=== PATIENT | female | born 1965 | race Caucasian/White ===

== ENCOUNTER 2018-04-07 06:24 | Inpatient (IN) ==
[2018-04-07] MEDS ORDERED: Vancomycin Inj 1,000 MG in Sodium Chlor 0.9% Inj 250 ML IV.SIG PRN (06:47)
[2018-04-07] MEDS ORDERED: Chlorhexidine Gluconate 2% 1 Pack (2 Cloths) TOPICAL ONE (06:52)
[2018-04-07] MEDS ORDERED: Metoprolol Tartrate 25 MG Tablet PO ONE (06:52)
[2018-04-07] MEDS ORDERED: Sodium Chlor 0.9% Inj 500 ML IV.SIG SCH (07:00)
[2018-04-07] MEDS ORDERED: ceFAZolin 2 GM Premix Inj 2 GM/50 ML PIGGYBACK IV.SIG ONE (07:02)
[2018-04-07] MEDS ORDERED: Bupivacaine/Epinephrine PF Inj 0.5% 30 ML Vial ONE (07:02)
[2018-04-07] MEDS ORDERED: Thrombin Topical Soln 5,000 UNIT Vial TOPICAL ONE (07:02)
[2018-04-07] MEDS ORDERED: Gelatin Size 100 Topical Foam ONE (07:03)
[2018-04-07] MEDS ORDERED: HYDROmorphone PF Inj 2 MG/ML Vial ONE (07:06)
[2018-04-07] MEDS ORDERED: Propofol Inj 500 MG/50 ML Vial ONE (07:06)
[2018-04-07] MEDS ORDERED: fentaNYL Citrate Inj 250 MCG/5 ML Ampul ONE (07:06)
[2018-04-07] MEDS ORDERED: Dexmedetomidine Inj 200 MCG/2 ML Vial ONE (07:07)
[2018-04-07] MEDS ORDERED: Phenylephrine/NS 1000 MCG/10ML Syringe IV.PUSH ONE (08:30)
[2018-04-07] MEDS ORDERED: Artificial Tears Opth Oint 3.5 GM Tube ONE (08:35)
[2018-04-07] MEDS ORDERED: Bisacodyl 10 MG Supp RECTAL PRN (10:03)
[2018-04-07] MEDS ORDERED: Ibuprofen 200 MG Tablet PO PRN (10:05)
[2018-04-07] MEDS ORDERED: Naloxone Inj 0.4 MG/ML Vial IV.PUSH PRN (10:05)
[2018-04-07] MEDS ORDERED: methylPREDNISolone acetate 40 MG/ML VIAL ONE (12:00)
[2018-04-07] MEDS ORDERED: fentaNYL Citrate Inj 100 MCG/2 ML Ampul ONE (13:48)
[2018-04-07] MEDS ORDERED: *morphine SULFATE 4 MG/ML PERIprocedure ONLY ONE (14:03)
--- NOTE | 2018-04-07 14:27 | P.OP ---
Preoperative Diagnosis: L4-5 spondylolisthesis, L1-L2 disk herniation Postoperative Diagnosis: L4-5 spondylolisthesis, L1-L2 disk herniation Date of procedure: 04/07/18 Procedure: 1- L4-L5 right laminectomy, interbody arthrodesis using PEEK cage and autologous bone graft, L4-L5 instrumental fixation using transpedicular screws and rods, L4-L5 lithopress operator lateral fusion using autologous bone graft and demineralized bone matrix. Microsurgical dissection 2- L1-L2 left hemilaminectomy and microdiscectomy Anesthesia: KELBY Surgeon: Herbert Albright MD Thermite Welder: Neha De La Cruz Pathology: none sent Operation and Findings: INDICATIONS FOR THE SURGICAL PROCEDURE Ms Murphy is a 52 year-old female who presented with intractable mechanical back pain and yasmin evidence of right L5 lower extremity radiculopathy and left L2 radiculopathy. She failed maximum nonsurgical management including multiple modalities of conservative treatment as well as pain management interventions by an interventional pain specialist. A surgical decompression and arthrodesis were indicated as a last resort. The essr-[id number] details of the procedure, indications, alternatives, risks and potential complications were fully discussed with the patient. The patient fully understood. All the questions were answered. No guarantees were given. The patient voiced requesting the procedure and provided informed consents. The patient was offered the alternative of delaying the procedure and continuing with nonsurgical management. DETAILS OF THE SURGICAL PROCEDURE Prior to the procedure, the surgical incision was marked in the preoperative surgical holding room, and the procedure, risks, and potential complications revisited with the patient. Placement of electrodes for intraoperative neurophysiological monitoring was completed. The patient was taken to the operative room, and following induction of general anesthesia, endotracheal intubation was performed. A Sherman catheter, bilateral FAHAD hose and sequential compression devices were placed and kept throughout the procedure. The patient was positioned prone, over a Sandip table over a bolsters. All pressure in the preoperative surgical holding room points were carefully padded with eggcrate and gel mattress. The eyes were tapped shut after ointment was applied by the anesthesiologist to prevent corneal abrasion. A Josselyn hugger was placed over the expossed lower body to maintain control of the core body temperature. The electrophysiological team placed the needles and electrodes in their proper location and baseline SSEP's and EMG potentials were registered. The entrance to each pedicles was marked using a C arm. The lumbar region was prepped and draped in the usual sterile fashion. The surgical procedure was performed in several steps as follow: SURGICAL APPROACH Once the patient was positioned, a localizing cross-table lateral x-ray was performed with a C-arm. Two paramedian small incisions were outlined on the skin approximately 3cm from the midline. The skin incisions were made with a # 10 blade. Small bleeders were controlled with the cautery. The dissection was then carried out into deper planes and through the thoracolumbar fascia with a Bovie. The intermuscular septum was identified and the myscles were blunted dissected along the septum. The facets and transverse process of L4 and L5 were exposed and the proper anatomical landmarks were identidied. A microsurgical self-retaining retractor was placed on the incision, and a localizing lateralizing cross-table x-ray was performed with an instrument underneath a lamina of the lumbar spine. INSTRUMENTAL FIXATION at L4-5 At this point in the procedure, placement of bilateral transpedicular screws was necessary for stabilization of the spine. Initially, the entry point for the screw was selected anatomically at the junction of the facet, with the transverse process, and the pars interarticularis at L4 and L5. This was started with a Giamshetti needle followed by the use of a brandt wire. A tap was used to create the threads for the screws. Finally bilateral transpedicular screws were carefully placed bilaterally at L4, and L5 under fluoroscopic visualization. An appropriate purchase was achieved with all screws. The position of each screw was assessed anatomically with an AP, lateral , oblique Xrays. An intraoperative scan view of the spine was then performed using the iso-centric c-arm. Each screw was then assessed electrophysiologically stimulating each screw with a nerve stimulator. SURGICAL DECOMPRESSION at L4-5 There was significant mass effect with compression of the neural structures. In order to relieve neural compression, it was necessary to perform a decompressive laminectomy, with decompression of the spinal canal and bilateral lateral recesses. Note that the scope of such decompression was significantly more extensive than the minimal exposure necessary to perform an interbody fusion, as there was extreme facet arthropathy with near complete collapse of the disk spaces and severe stenosis cause by the hyperthrophic joint facets. At this point of the procedure the operative microscope was draped in the usual sterile fashion and brought to the field. The rest of the surgical procedure was performed using microdissection technique with the exception of the closure. Under the operating microscope, a right decompressive laminectomy was carried out at L4-L5 as follow: The laminae, base of the spinous processes and facets were carefully drilled exposing the ligamentum flavum. The facets were abnormal with severe spondylolisthesis and gross mechanical instability. A large disk protusion was compressing the neural structures and exiting nerve roots. A near complete facetectomy was necessary resulting in further mechanical instability. The ligamentum flavum appeared hypertrophic, resulting on mass effect on the dorsal surface of the neural structures. The superior free border of the ligamentum flavum was elevated with a ligament dissector and the ligamentum flavum was removed with a 3 and 4 mm Kerrison forceps. The ligament was very adherent to the dural sac and during the dissection, and extreme care was taken during the dissection. The exiting nerve roots were identified, and a wide foraminotomy was performed with a Kerrison in their trajectory towards the neural foramen. Epidural veins located laterally to the dural sac were coagulated with the bipolar cautery, and then incised using microscissors. Gentle medial retraction of the dural sac allowed me to expose the disc space for the discectomy. Upon completion of the discectomy, an excellent decompression of the neural structures was achieved. Increased motion was noted thorough the procedure, consistent with mechanical instability. INTERBODY ARTHRODHESIS at L4-5 In order to correct the narrowing of the disk space and maintain distraction of the space, and to achieve a solid interbody fusion, it was necessary the insertion of an interbody device into the disk space. Otherwise, the disk space would collapse, compromising the result of the surgical procedure. At this point of the procedure, the annulus fibrosus of the disk was carefully coagulated with a bipolar cautery and incised using an 11 bladed knife. Then, a microdiscectomy was carried out in a standard fashion using a combination of straight and up-biting pituitary forceps. A reverse angle curette was applied underneath the posterior longitudinal ligament, and used to push the disk fragments into the disk space, so they can be safely removed with a pituitary forceps. Once the discectomy was completed, it was necessary to decorticate the endplates, in order to eliminate the cartilaginous endplate and to expose healthy bone appropriate to perform the interbody fusion. The endplates at L4- L5 were then thoroughly decorticated using increasing size bone irving and ring curets, eliminating the cartilaginous fragments from both, the superior and inferior endplates. A disk space distractor was applied to the pedicle screws and gentle distraction was applied. This maneuver was assisted by the use of a disk distractor. Increased motility was noted at the disk, which was consistent with instability due to facet arthropathy. Once a thorough preparation of the disk space was achieved, the disk space was irrigated with antibiotic solution, and the interbody fusion was performed by carefully impacting an expandable PPEK cage filled with autologous bone graft. The cage was cartefully expanded. A solid position of the cage with good purchase was achieved. The position of the cage was assessed anatomically with a probe and radiologically with the C-arm. POSTEROLATERAL FUSION at L4-5 The posterolateral fusion is a critical component to the procedure, to prevent future fatigue and failure of the instrumental fixation. Initially, the transverse processes of the vertebral bodies, lateral surface of the facets and the lateral gutters of the spine were carefully cleaned, eliminating all soft tissue and muscle attachments. The area was then irrigated with a large amount of antibiotic solution. Subsequently, the transverse processes, lateral surface of the facets, and lateral gutters of the spine were thoroughly decorticated using the TPS drill with a 5mm cutting ailyn, exposing cancellous bone, in preparation for the posterolateral fusion. The incision was again irrigated with antibiotic solution. Then, the posterolateral fusion was then performed by carefully packing the lateral gutters of the spine at L4-L5 with autologous bone combined with demineralized bone matrix. SURGICAL DECOMPRESSION AT L1-L2 There was a disk herniation at L1-L2 causing significant mass effect with compression of the neural structures. Under the operating microscope, a decompressive laminectomy was carried out at L1-L2 as follow: The laminae, base of the spinous processes and facets were carefully drilled exposing the ligamentum flavum. The superior free border of the ligamentum flavum was elevated with a ligament dissector and the ligamentum flavum was removed with a 3 and 4 mm Kerrison forceps. The exiting nerve roots were identified, and a wide foraminotomy was performed with a Kerrison in their trajectory towards the neural foramen. Epidural veins located laterally to the dural sac were coagulated with the bipolar cautery, and then incised using microscissors. Gentle medial retraction of the dural sac allowed me to expose the disc space for the discectomy. there was a disk herniation with an extrusion. Upon completion of the discectomy, an excellent decompression was achieved. COMPLETION OF THE INSTRUMENTATION AND CLOSURE The rods were brought to the field, applied to all the screws, and the screw caps were sequentially applied. Compression was performed between the pedicle screws, and final tightening of the screws was completed using a torque wrench. The incision was again thoroughly irrigated with several liters of antibiotic solution, and hemostasis secured with the bipolar cautery. A Valsalva Maneuver performed by the anesthesiologist failed to show any evidence of cerebrospinal fluid leak or bleeding. A 10 mm Sandip-Alejo drain was left in the epidural space at L4-5 and externalized through a separate stab incision. Each incision was then closed in planes. 0 Vicryl was used in an interrupted fashion to close the thoracolumbar fascia and the superficial fascia. The subcutaneous tissue was then approximated using 3-0 Vicryl in an interrupted fashion. Special care was taken to avoid space. The skin was then closed with 4-0 Vicryl in a running, subcuticular fashion. Dermabond was applied to the skin. Each plane of closure was irrigated with antibiotic solution. At the end of the procedure the sponge, needle and instrument counts were all correct. Estimated blood loss was 250cc. No blood transfusion was given. The entire procedure was performed using continuous electrophysiological monitoring of the somatosensorial evoked potentials and EMG. The patient received prophylactic antibiotics. The patient was then extubated and transferred to the recovery room in stable condition.
--- NOTE | 2018-04-07 15:14 | XR ---
EXAM DATE: 04/07/2018 12:00 AM EDT AGE/SEX: 52 years / Female INDICATIONS: Fusion L4,L5 with screw and phyllis. CLINICAL DATA: This is the patient's initial encounter. Patient reports that signs and symptoms have been present for 1 day and indicates a pain score of Nonresponsive. MEDICAL/SURGICAL HISTORY: None. None. COMPARISON: POI, XR SPINE LUMBAR AP AND LAT W/ FLEX AND EXT, 12/22/2017. . FINDINGS: Intraoperative examination demonstrates Transpedicular screws traverse the bodies of L4-5 with pos terior stabilization hardware in place in addition to anterior fusion at these levels. CONCLUSION: Intact immediate postsurgical changes. Electronically signed by: Abbey Hilario MD 04/07/2018 3:12 PM EDT
[2018-04-07] MEDS ORDERED: Morphine Inj 4 MG/ML Vial ONE (16:09)
[2018-04-07] MEDS: ceFAZolin 2 GM Premix Inj 2 GM/50 ML PIGGYBACK IV.SIG SCH (17:34)
[2018-04-07] MEDS: Sod Chloride 0.9% Inj 1,000 ML IV.SIG SCH (18:17)
[2018-04-07] MEDS: Gabapentin 300 MG Capsule PO SCH ×2 (18:18→21:29)
[2018-04-07] MEDS: Chlorhexidine Gluconate 2% 1 Pack (2 Cloths) TOPICAL SCH (18:18)
[2018-04-07] MEDS: Sod Chloride 0.9% Inj 1,000 ML IV.CONT SCH ×2 (18:18→21:29)
[2018-04-07] MEDS: HYDROmorphone PCA Inj 6 MG/30 ML PCA.VIAL PCA PRN (20:19)
[2018-04-07] MEDS: Senna/Docusate Sodium 8.6/50 MG Tablet PO SCH (21:28)
[2018-04-08] MEDS: ceFAZolin 2 GM Premix Inj 2 GM/50 ML PIGGYBACK IV.SIG SCH ×2 (01:11→08:38)
[2018-04-08] MEDS: HYDROmorphone PCA Inj 6 MG/30 ML PCA.VIAL PCA PRN ×3 (02:56→19:35)
[2018-04-08] MEDS: Sod Chloride 0.9% Inj 1,000 ML IV.CONT SCH ×2 (05:24→16:15)
[2018-04-08] MEDS: Sod Chloride 0.9% Inj 1,000 ML IV.SIG SCH (08:37)
[2018-04-08] MEDS: Gabapentin 300 MG Capsule PO SCH ×2 (08:38→20:19)
[2018-04-08] MEDS: Senna/Docusate Sodium 8.6/50 MG Tablet PO SCH ×2 (08:39→20:19)
[2018-04-08] MEDS ORDERED: BLACK COHOSH PO SCH (09:00)
[2018-04-08] MEDS: Chlorhexidine Gluconate 2% 1 Pack (2 Cloths) TOPICAL SCH (09:00)
--- NOTE | 2018-04-08 10:18 | P.PNNS ---
Subjective Interval history: moderate incisional pain worse with movement. controlled on SACK DEPARTMENT SUPERVISOR. mild nausea with movement. Physical Exam Vital signs: Vital Signs 04/07/18 13:39 04/07/18 13:45 04/07/18 14:00 Temperature 97.6 F Pulse Rate 91 H 82 100 H Respiratory Rate 15 15 15 Blood Pressure 104/59 L 101/60 100/55 L Pulse Oximetry 96 96 98 04/07/18 14:15 04/07/18 14:30 04/07/18 15:00 Temperature Pulse Rate 87 100 H 68 Respiratory Rate 17 17 16 Blood Pressure 98/51 L 95/46 L 106/65 Pulse Oximetry 98 98 98 04/07/18 15:30 04/07/18 16:00 04/07/18 17:00 Temperature Pulse Rate 68 86 90 Respiratory Rate 15 16 15 Blood Pressure 109/62 110/56 L 102/55 L Pulse Oximetry 97 97 97 04/07/18 18:00 04/07/18 20:25 04/07/18 21:18 Temperature 98.0 F 97.1 F L Pulse Rate 86 67 Respiratory Rate 15 17 Blood Pressure 110/57 L 135/74 Pulse Oximetry 97 100 99 04/07/18 21:30 04/07/18 23:37 04/08/18 01:13 Temperature 97.3 F L Pulse Rate 78 Respiratory Rate 8 L 17 16 Blood Pressure 98/51 L Pulse Oximetry 98 04/08/18 03:00 04/08/18 04:02 04/08/18 08:00 Temperature 98.3 F 97.6 F Pulse Rate 89 85 Respiratory Rate 17 18 18 Blood Pressure 159/74 H 103/58 L Pulse Oximetry 98 100 Intake & Output 04/07/18 04/08/18 04/08/18 18:59 06:59 18:59 Intake Total 3100 / 3100 1410 / 1410 Output Total 1550 / 1550 1600 / 1600 Balance 1550 / 1550 -190 / -190 Weight 60.6 kg 60.6 kg Intake: IV 1100 / 1100 1050 / 1050 NS Inj 1,000 ML @ 100 mls/hr IV 1000 / 1000 .CONT .Q10H [facility] Rx#:[id number] LR 1000 mL Inj 1,000 ML @ 30 1000 / 1000 mls/hr IV.SIG .Q24H [facility] Rx#: [id number] Ancef 2 GM Premix Inj 2 gm In 100 / 100 50 / 50 50 ml @ 100 mls/hr IV.SIG Q8H [facility] Rx#:[id number] Oral 360 / 360 Anesthesia Amount 1999 Output: Estimated Blood Loss 150 / 150 Urine Amount (Catheter) 1400 / 1400 1600 / 1600 Indwelling Urethral Catheter 1400 / 1400 1600 / 1600 Other: Date of Last Bowel Movement 04/07/18 # Bowel Movements 0 Weight On Admission 60.6 kg Narrative: awake, alert NAD ELY drain with moderate drainage move LE 5-/5 limited due to postoperative pain - Urinary Catheter Management Indwelling Urethral Catheter Cath placed during this visit: yes Reason for continuing: Acute urinary retention Insertion date: 04/07/18 Insertion time: 09:00 Assessment and Plan - Plan 52 y/o F s/p L4-L5 right laminectomy, interbody arthrodesis using PEEK cage and autologous bone graft, L4-L5 instrumental fixation using transpedicular screws and rods, L4-L5 district resource officer lateral fusion using autologous bone graft and demineralized bone matrix. Microsurgical dissection. L1-L2 left hemilaminectomy and microdiscectomy for L4-5 spondylolisthesis, L1-L2 disk herniation (04/07/18) cont SACK DEPARTMENT SUPERVISOR for pain control LSO when out of bed cont ELY draining, monitor output
--- NOTE | 2018-04-08 16:24 | P.DCO ---
- Physical Therapy Order: Improve ambulation - Home Health Nursing Order: Medical education, Signs/symptoms of disease process, Wound care and dressing changes, Nursing assessment with vital signs - Case Management Consult No - Certification I have seen patient Yasmine Jeffries on 04/08/18. My clinical findings support the need for the requested home health care services because: Deconditioned with increased weakness, High risk of falls I certify that my clinical findings support that this patient is homebound because: Post-op weakness, Unsteady gait/balance
--- NOTE | 2018-04-09 01:20 | ECG ---
Date Performed: 04/07/2018 Time Performed: 07:11:13 PTAGE: 52 years EKG: Sinus rhythm NORMAL ECG NO PREVIOUS TRACING DOCTOR: Guillaume Garcia Interpretating Date/Time 04/09/2018 01:19:34
[2018-04-09] MEDS: HYDROmorphone PCA Inj 6 MG/30 ML PCA.VIAL PCA PRN ×2 (04:23→16:50)
[2018-04-09] MEDS: Sod Chloride 0.9% Inj 1,000 ML IV.CONT SCH ×3 (04:23→22:56)
[2018-04-09] MEDS: Sod Chloride 0.9% Inj 1,000 ML IV.SIG SCH (06:54)
[2018-04-09] MEDS: Gabapentin 300 MG Capsule PO SCH ×2 (08:12→20:59)
[2018-04-09] MEDS: Senna/Docusate Sodium 8.6/50 MG Tablet PO SCH ×2 (08:12→20:59)
[2018-04-09] MEDS: Chlorhexidine Gluconate 2% 1 Pack (2 Cloths) TOPICAL SCH (09:00)
--- NOTE | 2018-04-09 10:41 | XR ---
EXAM DATE: 04/07/2018 12:00 AM EDT AGE/SEX: 52 years / Female INDICATIONS: Level localization for laminectomy L1,L2. CLINICAL DATA: This is the patient's initial encounter. Patient reports that signs and symptoms have been present for 1 day and indicates a pain score of Nonresponsive. MEDICAL/SURGICAL HISTORY: None. None. COMPARISON: POI, XR SPINE LUMBAR AP AND LAT W/ FLEX AND EXT, 12/22/2017. . FINDINGS: A coned-down lateral view of the lumbar spine. Lumbosacral region is not imaged to allow for localiza tion. Intradiscal hardware and transpedicular rods are noted in the lower lumbar spine. There is a ra diopaque marker 2 levels above the highest lower lumbar hardware. Vertebral body heights are intact. CONCLUSION: 1. Lumbar localization, as above. Electronically signed by: Michael Toledo MD 04/09/2018 10:40 AM EDT
--- NOTE | 2018-04-09 10:59 | P.PNNS ---
Subjective Interval history: stable incisional pain controlled on UX UI DESIGNER, c/o however of WHITE's today. ELY drain also with increased serous drainage. Physical Exam Vital signs: Vital Signs 04/08/18 12:00 04/08/18 15:50 04/08/18 19:22 Temperature 97.7 F 97.8 F 98.0 F Pulse Rate 85 84 81 Respiratory Rate 18 18 17 Blood Pressure 127/59 L 108/54 L 123/64 Pulse Oximetry 100 99 97 04/09/18 00:14 04/09/18 05:38 04/09/18 08:00 Temperature 98.1 F 97.7 F Pulse Rate 90 89 Respiratory Rate 17 16 20 Blood Pressure 137/67 121/65 Pulse Oximetry 97 98 Intake & Output 04/08/18 04/09/18 04/09/18 18:59 06:59 18:59 Intake Total 2820 / 2820 1360 / 1360 Output Total 1200 / 1200 1710 / 1710 Balance 1620 / 1620 -350 / -350 Weight 60.6 kg Intake: IV 1000 / 1000 1000 / 1000 NS Inj 1,000 ML @ 100 mls/hr IV 1000 / 1000 1000 / 1000 .CONT .Q10H [facility] Rx#:[id number] Oral 1820 / 1820 360 / 360 Output: Urine 1150 / 1150 Urine Amount (Catheter) 1650 / 1650 Indwelling Urethral Catheter 1650 / 1650 Wound Drainage 50 / 50 60 / 60 # 1 Medial Back 50 / 50 60 / 60 Other: Date of Last Bowel Movement 04/07/18 04/07/18 04/07/18 # Bowel Movements 0 0 - Urinary Catheter Management Indwelling Urethral Catheter Cath placed during this visit: yes, but has since been removed by the nurse Reason for continuing: Decision to DC catheter Insertion date: 04/07/18 Insertion time: 09:00 Removal date: 04/09/18 Removal time: 10:00 Assessment and Plan - Plan 52 y/o F s/p L4-L5 right laminectomy, interbody arthrodesis using PEEK cage and autologous bone graft, L4-L5 instrumental fixation using transpedicular screws and rods, L4-L5 manager simulation lateral fusion using autologous bone graft and demineralized bone matrix. Microsurgical dissection. L1-L2 left hemilaminectomy and microdiscectomy for L4-5 spondylolisthesis, L1-L2 disk herniation (04/07/18) ?CSF leak Plan: cont UX UI DESIGNER for pain control dc ELY drain and keep bed rest today, HOB no greater than 30 degrees
[2018-04-10] MEDS: Sod Chloride 0.9% Inj 1,000 ML IV.SIG SCH (08:13)
[2018-04-10] MEDS: Senna/Docusate Sodium 8.6/50 MG Tablet PO SCH ×2 (08:26→20:30)
[2018-04-10] MEDS: Gabapentin 300 MG Capsule PO SCH ×2 (08:27→20:30)
[2018-04-10] MEDS: Sod Chloride 0.9% Inj 1,000 ML IV.CONT SCH ×2 (09:30→17:58)
--- NOTE | 2018-04-10 10:44 | P.PNNS ---
Subjective Interval history: still moderately to severely painful at times surgical area, has not been using her FINAL CANOE INSPECTOR and may have missed some dosage of pain medications. prior radicular pain better, still c/o left hip pain and numbness. constipated. Physical Exam Vital signs: Vital Signs 04/09/18 12:00 04/09/18 16:00 04/09/18 20:30 Temperature 97.7 F 97.8 F 98.8 F Pulse Rate 92 H 102 H 95 H Respiratory Rate 20 19 16 Blood Pressure 109/55 L 123/61 115/57 L Pulse Oximetry 95 98 95 04/10/18 00:20 04/10/18 04:50 04/10/18 08:00 Temperature 98.4 F 97.4 F L 97.9 F Pulse Rate 87 84 82 Respiratory Rate 16 16 16 Blood Pressure 110/57 L 129/70 113/70 Pulse Oximetry 95 94 L 96 Intake & Output 04/09/18 04/10/18 04/10/18 18:59 06:59 18:59 Intake Total 1720 / 1720 1920 / 1920 Output Total 700 / 700 Balance 1020 / 1020 1920 / 1920 Weight 60.5 kg Intake: IV 1000 / 1000 1000 / 1000 NS Inj 1,000 ML @ 100 mls/hr IV 1000 / 1000 1000 / 1000 .CONT .Q10H [facility] Rx#:[id number] Oral 720 / 720 920 / 920 Output: Urine 700 / 700 Other: # Voids 3 2 Date of Last Bowel Movement 04/07/18 04/07/18 04/07/18 # Bowel Movements 0 Narrative: Awake, alert painful with movement wound inspected, gauze dressing with blood tinged serous drainage, no signs of active leaking or drainage from incisions and drain site. steri-strips placed over drain site and wound redressed with gauze and primapore 4/5 left iliopsoas with giveaway due to pain, 5/5 right iliopsoas, b/l quadriceps, hamstrings, TA, gastrocnemius - Urinary Catheter Management Indwelling Urethral Catheter Cath placed during this visit: yes, but has since been removed by the nurse Reason for continuing: Decision to DC catheter Insertion date: 04/07/18 Insertion time: 09:00 Removal date: 04/09/18 Removal time: 10:00 Assessment and Plan - Plan 52 y/o F s/p L4-L5 right laminectomy, interbody arthrodesis using PEEK cage and autologous bone graft, L4-L5 instrumental fixation using transpedicular screws and rods, L4-L5 mold press operator lateral fusion using autologous bone graft and demineralized bone matrix. Microsurgical dissection. L1-L2 left hemilaminectomy and microdiscectomy for L4-5 spondylolisthesis, L1-L2 disk herniation (04/07/18) ?CSF leak Plan: cont FINAL CANOE INSPECTOR for pain control today per Alex Aparicio prn cont bed rest today, HOB no greater than 30 degrees, ok for bathroom priveleges only cont bowel regimen cont wound monitoring, drain site SCDs and TEDs for dvt prophylaxis
[2018-04-10] MEDS: HYDROmorphone PCA Inj 6 MG/30 ML PCA.VIAL PCA PRN (20:30)
[2018-04-11] MEDS: Sod Chloride 0.9% Inj 1,000 ML IV.SIG SCH (08:58)
[2018-04-11] MEDS: Gabapentin 300 MG Capsule PO SCH ×2 (09:29→21:51)
[2018-04-11] MEDS: Senna/Docusate Sodium 8.6/50 MG Tablet PO SCH ×2 (09:29→21:51)
--- NOTE | 2018-04-11 13:18 | P.PNNS ---
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 Physical Exam Vital signs: Vital Signs 04/10/18 13:25 04/10/18 14:00 04/10/18 16:00 Temperature 98.3 F Pulse Rate 88 Respiratory Rate 15 12 18 Blood Pressure 100/59 L Pulse Oximetry 96 04/10/18 17:47 04/10/18 20:55 04/10/18 23:55 Temperature 97.9 F 97.6 F Pulse Rate 86 84 Respiratory Rate 14 15 16 Blood Pressure 116/56 L 117/62 Pulse Oximetry 94 L 96 04/11/18 02:00 04/11/18 04:25 04/11/18 06:00 Temperature 97.2 F L Pulse Rate 80 Respiratory Rate 18 15 18 Blood Pressure 116/58 L Pulse Oximetry 96 04/11/18 08:00 04/11/18 10:11 04/11/18 12:00 Temperature 98.0 F 98.2 F Pulse Rate 88 64 Respiratory Rate 18 17 16 Blood Pressure 118/73 111/53 L Pulse Oximetry 95 93 L Intake & Output 04/10/18 04/11/18 04/11/18 18:59 06:59 18:59 Intake Total 820 / 820 Output Total 1949 500 / 500 Balance -1949 / -1949 320 / 320 Weight 60.5 kg Intake: Oral 820 / 820 Output: Urine 1949 500 / 500 Other: # Voids 3 Date of Last Bowel Movement 04/10/18 Narrative: Awake, alert painful with movement wound inspected, gauze dressing with blood tinged serous drainage, no signs of active leaking or drainage from incisions and drain site. steri-strips placed over drain site and wound redressed with gauze and primapore 4/5 left iliopsoas with giveaway due to pain, 5/5 right iliopsoas, b/l quadriceps, hamstrings, TA, gastrocnemius - Urinary Catheter Management Indwelling Urethral Catheter Cath placed during this visit: yes, but has since been removed by the nurse Reason for continuing: Decision to DC catheter Insertion date: 04/07/18 Insertion time: 09:00 Removal date: 04/09/18 Removal time: 10:00 Assessment and Plan - Plan 52 y/o F s/p L4-L5 right laminectomy, interbody arthrodesis using PEEK cage and autologous bone graft, L4-L5 instrumental fixation using transpedicular screws and rods, L4-L5 outside production inspector lateral fusion using autologous bone graft and demineralized bone matrix. Microsurgical dissection. L1-L2 left hemilaminectomy and microdiscectomy for L4-5 spondylolisthesis, L1-L2 disk herniation (04/07/18) ?CSF leak Plan: cont TECHNICAL SALES SUPPORT MANAGER for pain control today per Alex Aparicio prn -- will d/c tomorrow d/c bedrest today afternoon given that wound is dry up activity as tolerated cont wound monitoring, looks dry today SCDs and TEDs for dvt prophylaxis
[2018-04-11] MEDS: HYDROmorphone PCA Inj 6 MG/30 ML PCA.VIAL PCA PRN (19:41)
[2018-04-12] MEDS: Senna/Docusate Sodium 8.6/50 MG Tablet PO SCH (09:05)
[2018-04-12] MEDS: Gabapentin 300 MG Capsule PO SCH (09:05)
[2018-04-12] MEDS: Sod Chloride 0.9% Inj 1,000 ML IV.SIG SCH (09:06)
--- NOTE | 2018-04-12 14:47 | P.PNNS ---
Subjective Interval history: Doing well since upright, GM VIDEO dc'd. would like to go home. Physical Exam Vital signs: Vital Signs 04/11/18 16:00 04/11/18 20:00 04/12/18 00:00 Temperature 98.0 F 97.8 F 97.8 F Pulse Rate 82 87 91 H Respiratory Rate 18 18 18 Blood Pressure 108/58 L 118/79 96/52 L Pulse Oximetry 97 95 96 04/12/18 02:00 04/12/18 04:00 04/12/18 06:00 Temperature 97.6 F Pulse Rate 90 Respiratory Rate 18 18 18 Blood Pressure 102/51 L Pulse Oximetry 95 04/12/18 08:00 04/12/18 12:00 Temperature 97.4 F L 97.7 F Pulse Rate 85 95 H Respiratory Rate 16 16 Blood Pressure 109/52 L 120/64 Pulse Oximetry 92 L 96 Intake & Output 04/11/18 04/12/18 04/12/18 18:59 06:59 18:59 Intake Total 240 / 240 Balance 240 / 240 Weight 60.5 kg Intake: Oral 240 / 240 Other: # Voids 3 2 Date of Last Bowel Movement 04/11/18 04/11/18 # Bowel Movements 1 1 Narrative: Awake, alert pain much improved incision c/d/i iliopsoas with giveaway due to pain, 5/5 right iliopsoas, b/l quadriceps, hamstrings, TA, gastrocnemius - Urinary Catheter Management Indwelling Urethral Catheter Cath placed during this visit: yes, but has since been removed by the nurse Reason for continuing: Decision to DC catheter Insertion date: 04/07/18 Insertion time: 09:00 Removal date: 04/09/18 Removal time: 10:00 Assessment and Plan - Plan 52 y/o F s/p L4-L5 right laminectomy, interbody arthrodesis using PEEK cage and autologous bone graft, L4-L5 instrumental fixation using transpedicular screws and rods, L4-L5 sales service rep lateral fusion using autologous bone graft and demineralized bone matrix. Microsurgical dissection. L1-L2 left hemilaminectomy and microdiscectomy for L4-5 spondylolisthesis, L1-L2 disk herniation (04/07/18) ?CSF leak Plan: d/c [facility] home health to see, d/c home with 3 days of pain medication, due to see Natalee on Friday. up activity as tolerated SCDs and TEDs for dvt prophylaxis
[2018-04-12 17:18] VITALS: BP 105/63; PULSE 89; RESP 18; TEMP 98; O2SAT 95
--- NOTE | 2018-04-13 17:00 | P.DS ---
Date of admission: 04/07/18 06:24 Primary care physician: Sasha Rojas Brief History from admission: Ms Murphy is a 52 year-old female who presented with intractable mechanical back pain and yasmin evidence of right L5 lower extremity radiculopathy and left L2 radiculopathy. She failed maximum nonsurgical management including multiple modalities of conservative treatment as well as pain management interventions by an interventional pain specialist. A surgical decompression and arthrodesis were indicated as a last resort. DS: Medications - Discharge Medications Prescriptions: hydrocodone-acetaminophen 2 tab PO Q4H PRN #36 tab PRN Reason: Pain Scale 6 To 10 DS: Summary Hospital Course: 1- L4-L5 right laminectomy, interbody arthrodesis using PEEK cage and autologous bone graft, L4-L5 instrumental fixation using transpedicular screws and rods, L4-L5 second operator lateral fusion using autologous bone graft and demineralized bone matrix. Microsurgical dissection 2- L1-L2 left hemilaminectomy and microdiscectomy for L4-5 spondylolisthesis, L1 -L2 disk herniation on 04/07/18. - Time Spent with Patient Total time spent providing and/or coordinating discharge services: - Quality: VTE Deep Vein Thrombosis/Pulmonary Embolism Present on Admission: No Exam Vital signs: Intake & Output 04/12/18 04/13/18 04/13/18 18:59 06:59 18:59 Other: # Voids 3 Date of Last Bowel Movement 04/11/18 Results - Impressions ITS Impressions Lumbar Spine X-Ray 04/07/18 00:00 CONCLUSION: 1. Lumbar localization, as above. Discharge Plan - Discharge Disposition Patient Disposition: 01 Discharge Home - Discharge Condition Condition: Good - Discharge Order Discharge Orders: Discharge Order (Routine); Ordered 04/12/18 Ordered By: Chirag James - Physicians Team Primary Care Provider: Sasha Rojas Attending Provider: Herbert Albright - Rxs /Orders / Referrals /Forms Prescriptions: New hydrocodone-acetaminophen 10-325 mg Tablet 2 tab PO Q4H PRN (Reason: Pain Scale 6 To 10) Qty: 36 RF: 0 No Action albuterol sulfate [Proventil HFA] 90 mcg/actuation Hfa Aerosol Inhaler 2 puff INHALATION Q6H PRN (Reason: Shortness Of Breath) black cohosh 20 mg Tablet 20 mg PO DAILY cyanocobalamin (vitamin B-12) [Vitamin B-12] 1,000 mcg Tablet 1,000 mcg PO DAILY cyclobenzaprine 10 mg Tablet 10 mg PO TID ibuprofen 200 mg Tablet 200 mg PO TID PRN (Reason: Pain) [id number] K [Adults Multivitamin] 18 mg iron-400 mcg-25 mcg Tablet 1 tab PO DAILY oxycodone 7.5 mg Tablet, Oral Only 7.5 mg PO Q4-6H PRN (Reason: Pain) Ambulatory Orders / Order Sets / DME: Walker With Front Wheels (1 each) (Routine) Location: Determined by Patient Ordered By: Chapis Villatoro Referrals: Sasha Rojas MD [Primary Care Provider] - See Instructions - Discharge Instructions Patient Printed Instructions: Laminectomy (DC), Narcotic Pain Management (GEN) , Lumbar Brace (DC) Additional Instructions: Keep or make your follow up appointments as directed by your providers. Take medications as directed. Continue to wear lumbar brace as directed by your provider. .
== END 2018-04-12 18:32 | disposition home or self-care (01) ==
LOC: HSDI 06:24 → N06 18:00
PROVIDERS: ADMIT Neurological Surgery; ATTEND Neurological Surgery
PROC: LAMPLIF (2018-04-07 08:30)